=== PATIENT | female | born 1975 | race Caucasian/White ===

== ENCOUNTER → 2023-12-26 11:35 | Outpatient (REF) | payer MEDICARE, SELFPAY | LOC: HWRAD 11:35 | PROVIDERS: ATTENDING PHYSICIAN Family Medicine; FAMILY PHYSICIAN Physician Assistant Medical | DX: M54.16 Radiculopathy, lumbar region (principal) | CPT/HCPCS: 72110 ==

== ENCOUNTER → 2024-03-25 12:58 | Outpatient (REF) | payer MEDICARE, SELFPAY | LOC: MRI 3T 12:58 | PROVIDERS: ATTENDING PHYSICIAN Orthopaedic Surgery; FAMILY PHYSICIAN Physician Assistant Medical | DX: M54.50 Low back pain, unspecified (principal); M25.552 Pain in left hip | CPT/HCPCS: 72148; 73721 ==

== ENCOUNTER 2024-06-08 15:36 | Emergency (ER) | payer MEDICARE, SELFPAY ==
[2024-06-08 15:55] VITALS: BP 127/65; BMI 33.5
--- NOTE | 2024-06-08 17:22 | ED.GENMED ---
History of Present Illness
General
Chief Complaint: Crisis Evaluation
Source: patient
Time Seen by Provider: 06/08/24 17:15
History of Present Illness
History of Present Illness:
48-year-old female who presents to the emergency room via police after the patient's mother has petition for 302. Reason for the 302 is the patient is not caring for herself adequately. Patient denies these allegations. She denies any suicidal or
homicidal ideations. Patient denies having any prescribed medications. She denies any auditory or visual hallucinations. No recent illness.
Phy Exam
Physical Exam
Physical Exam:
General: Awake, Alert, Oriented X3. No acute distress.
Vitals: unremarkable
Head: Atraumatic
Eyes: Pupils equal, EOMI
Throat: Airway intact, no exudates
Neck: Trachea midline
Lungs: Clear and equal b/l
Heart: Regular rate, no murmurs
Abd: Soft, Nontender, No pulsatile mass
Neuro: Cranial nerves intact, muscle strength equal bilaterally, cerebellar exam normal
Skin: Warm, dry, no rash
Extremities: pulses equal b/l, no edema
Course
Orders/Labs/Results
Orders:
Orders
06/08/24 20:12
Nicotine [Nicoderm Transdermal] 21 mg TRANSDERM NOW STA
06/08/24 20:13
Test Result ONCE
06/08/24 20:53
Haloperidol Lactate [Haldol] 5 mg IM NOW STA
Lorazepam [Ativan] 2 mg IM NOW STA
06/08/24 21:15
Basic Metabolic Panel Urgent
Complete Blood Count/With Diff Urgent
HCG, Serum Qualitative Screen Urgent
06/08/24 21:49
Lorazepam [Ativan] 1 mg PO NOW STA
Abnormal Lab Results
06/08/24
21:15
WBC 10.9 H 10^3/uL
(4.8-10.8)
RBC 4.09 L 10^6/uL
(4.20-5.40)
Hct 36.8 L %
(37.0-47.0)
Absolute Neuts (auto) 7.3 H 10^3/uL
(1.4-6.5)
Absolute Monos (auto) 0.9 H 10^3/uL
(0.1-0.6)
Chloride 109 H mmol/L
(98-107)
06/08/24 21:15
06/08/24 21:15
Vital Signs
Initial and Last Documented VS:
Initial Vital Signs
Temp Pulse Resp BP Pulse Ox
98.5 F 88 16 127/65 94
06/08/24 15:55 06/08/24 15:55 06/08/24 15:55 06/08/24 15:55 06/08/24 15:55
Last Documented Vital Signs
Temp Pulse Resp BP Pulse Ox
97.9 F 85 17 143/69 100
06/09/24 09:38 06/09/24 09:38 06/09/24 09:38 06/09/24 09:38 06/09/24 09:38
MDM/Problems Addressed
Differential Diagnosis Includes:
psychosis, depression, anxiety
MDM/Problems Addressed:
302 upheld. Screening labs ordered. Pt became agitated, yelling at security and refusing to stay in her room. Haldol/ativan ordered.
*Pulse Oximetry
Patient hypoxic: no
*Critical Care Note
Total Time (30-74mins, 75-104mins- exclusive of procedures): Not Applicable
ED Attending Note
-
Portions of this chart may have been created with voice recognition software.� Occasional wrong word or��sound alike� substitutions may have occurred due to the inherent limitations of voice recognition software.
Discharge Plan
Departure
Patient Disposition: Psych Facility
Date of Disposition: 06/08/24
Time of Disposition: 20:13
Patient Status:: 302
Patient with high blood pressure during this ER visit?: No
Condition: Fair
Discharge Problem:
acute psychosis
Prescriptions:
No Action
No Current Medications
0
Referrals:
UNKNOWN - PT DOES,NOT KNOW [Family Provider] -
Interventions
Interventions:
*Risk Screen - Suicide Last Done: 06/08/24 15:55
*General Assessment Last Done: 06/08/24 15:55
*Neglect/Abuse Screening Last Done: 06/08/24 15:55
ED- Fall Risk Assessment Last Done: 06/08/24 15:55
*ED COVID-19 Vaccine History Last Done: 06/08/24 15:55
ED-Psychological Assessment Last Done: 06/09/24 09:00
Discharge Date and Time
Print Language: OMANI
[2024-06-08] MEDS: NICODERM TRANSDERMAL 21 MG TRANSDERM (21:05)
[2024-06-08 21:31] LABS: % Basophils 0.4 % (0-2); % Eosinophils 1.5 % (0-6); % Immature Granulocytes 0.4 % (0-0.5); % Lymphocytes 23.3 % (20.5-51.1); % Monocytes 7.9 % (1.7-9.3); % Neutrophils 66.5 % (42.2-75.2); Absolute Eosinophils 0.2 10^3/uL (0-0.7); Absolute Lymphocytes 2.6 10^3/uL (1.2-3.4); Absolute Monocytes 0.9 10^3/uL (0.1-0.6); Absolute Neutrophils 7.3 10^3/uL (1.4-6.5); Hematocrit 36.8 % (37.0-47.0); Hemoglobin 12.4 g/dL (12.0-16.0); Mean Corp Hgb Conc. 33.7 g/dL (33.0-37.0); Mean Corpuscular Hgb 30.3 pg (27.0-31.0); Mean Platelet Volume 9.9 fL (7.4-10.4); Nucleated Red Blood Cells % 0 %; Platelet Count 296 10^3/uL (130-400); Red Blood Cell Count 4.09 10^6/uL (4.20-5.40); Red Cell Dist. Width 12.6 % (11.5-14.5); White Blood Cell Count 10.9 10^3/uL (4.8-10.8)
[2024-06-08 21:40] LABS: HCG, Serum Qualitative Screen Negative
[2024-06-08 21:44] LABS: Blood Urea Nitrogen 12 mg/dl (7-17); Calcium 9.1 mg/dl (8.4-10.2); Carbon Dioxide 26 mmol/L (22-30); Chloride 109 mmol/L (98-107); Estimated Creatinine Clearance 108 ml/min; Glucose 96 mg/dl (70-99); Potassium 4.5 mmol/L (3.5-5.1); Sodium 139 mmol/L (135-145); eGFR > 60.00
[2024-06-08] MEDS: ATIVAN 1 MG PO (21:49)
[2024-06-09 09:00] VITALS: BP 136/81
--- NOTE | 2024-06-09 09:35 | ED.CRISIS ---
ED Crisis Note
ED Crisis Note
Subjective:
302
Assessment/Plan:
Patient held on a 302 for acute psychosis. Patient evaluated by me at 9:30 AM today. Patient is fully awake, calm and cooperative. She has no physical complaints. Patient being served breakfast. Is smiling and calm. Patient was able to sleep
for several hours last night and states she feels well rested.
[2024-06-09 09:38] VITALS: BP 143/69
--- NOTE | 2024-06-09 13:03 | EDRN ---
per crisis, the pt is to have a covid swab and urine drug screen for placement, this was communicated to Dr. Boykin
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
[2024-06-09 14:09] LABS: COVID-19 Antigen Negative (Negative)
[2024-06-09 17:22] LABS: Amphetamines Negative (Negative); Barbiturates Negative (Negative); Benzodiazepines Negative (Negative); Buprenorphine Negative (Negative); Cocaine Negative (Negative); Marijuana Negative (Negative); Methadone Negative (Negative); Methamphetamines Negative (Negative); Opiates Negative (Negative); Phencyclidine Negative (Negative); Tricyclic Antidepressants Negative (Negative)
[2024-06-09 21:53] VITALS: BP 121/81
== END 2024-06-10 02:30 ==
LOC: EMR 15:36
PROVIDERS: EMERGENCY PHYSICIAN Emergency Medicine; OTHER PHYSICIAN Psychiatry & Neurology Psychiatry
DX: F23 Brief psychotic disorder (principal); R45.1 Restlessness and agitation; Z11.52 Encounter for screening for COVID-19
CPT/HCPCS: 99285; 80048; 80306; 84703; 85025; 87811

== ENCOUNTER 2024-07-21 21:27 | Emergency (ER) | payer MEDICARE, SELFPAY ==
[2024-07-21 21:37] VITALS: BP 138/76
[2024-07-21 22:43] LABS: % Basophils 0.6 % (0-2); % Immature Granulocytes 0.5 % (0-0.5); % Monocytes 7.3 % (1.7-9.3); % Neutrophils 65.6 % (42.2-75.2); Absolute Basophils 0.1 10^3/uL (0-0.2); Absolute Eosinophils 0.2 10^3/uL (0-0.7); Absolute Immature Granulocytes 0.1 10^3/uL (0-0.05); Absolute Lymphocytes 2.6 10^3/uL (1.2-3.4); Absolute Monocytes 0.8 10^3/uL (0.1-0.6); Hematocrit 35.4 % (37.0-47.0); Hemoglobin 11.7 g/dL (12.0-16.0); Mean Corp Hgb Conc. 33.1 g/dL (33.0-37.0); Mean Corpuscular Hgb 29.4 pg (27.0-31.0); Mean Corpuscular Volume 88.9 fL (81.0-99.0); Mean Platelet Volume 9.5 fL (7.4-10.4); Nucleated Red Blood Cells % 0 %; Platelet Count 258 10^3/uL (130-400); Red Blood Cell Count 3.98 10^6/uL (4.20-5.40); Red Cell Dist. Width 13.5 % (11.5-14.5); White Blood Cell Count 10.7 10^3/uL (4.8-10.8)
[2024-07-21 22:50] VITALS: BMI 42.0
[2024-07-21 22:54] VITALS: BP 127/54
[2024-07-21 23:00] VITALS: BP 125/63
[2024-07-21 23:06] LABS: ALT (SGPT) 20 U/L (0-35); AST (SGOT) 20 U/L (14-36); Albumin 4.2 g/dl (3.5-5.0); Alkaline Phosphatase 63 U/L (38-126); Blood Urea Nitrogen 22 mg/dl (7-17); Calcium 9.5 mg/dl (8.4-10.2); Carbon Dioxide 25 mmol/L (22-30); Chloride 105 mmol/L (98-107); Estimated Creatinine Clearance 93 ml/min; Glucose 99 mg/dl (70-99); NT-proBNP 28.6 pg/ml; Potassium 4.6 mmol/L (3.5-5.1); Sodium 141 mmol/L (135-145); Total Bilirubin 0.2 mg/dl (0.2-1.3); Total Protein 6.4 g/dl (6.3-8.2); eGFR > 60.00
--- NOTE | 2024-07-21 23:12 | ED.GENMED ---
History of Present Illness
General
Chief Complaint: Cardiac Symptoms
Source: patient
Exam Limitations: none
Time Seen by Provider: 07/21/24 22:44
History of Present Illness
History of Present Illness:
This is a 49 year old female that comes in with multiple complaints. States that she just did not feel well. States that she has chest pain with some SOB. States that she feels like she is retaining fluid and that all this started at 9pm tonight.
States that the SOB is better and a headache that come and goes. Denies any fever, chills, abd pain, nausea, vomiting, diarrhea, headache at this time, dizziness, or urinary burning.
Past History
Past History
ED Past Medical History: Hyperthyroidism, Psychiatric (Anxiety, PTSD, Schizo-affective ) and Other (Anemia, )
ED Past Surgical History: Gynecological (Partial hysterectomy) and Orthopedic (Lumbar laminectomy)
Social History
Tobacco: Vaping
Alcohol: None
Personal: Other (Seperated)
Living: with family
Review of Systems
Review of Systems
All Other Systems: ROS reviewed and negative except as documented in HPI and ROS
Constitutional: Reports no symptoms; Denies fever or chills
EENT: Reports no symptoms
Respiratory: Reports trouble breathing; Denies cough
Cardiac: Reports chest pain
ABD/GI: Reports no symptoms; Denies abdominal pain, nausea, vomiting or diarrhea
: Reports no symptoms; Denies dysuria, frequency or urgency
Musculoskeletal: Reports other (Feels like she is retaining water)
Skin: Reports no symptoms
Neurological: Reports headache (comes and goes); Denies dizzy
Psychiatric: Reports no symptoms
Phy Exam
General Physical Exam
General Presentation: well appearing and no apparent distress
General age: appears stated age
General Skin: warm and dry
General Habitus: obese
General Mental: alert
General Hydration: appears well hydrated
ENT Exam
ENT Exam: TM's normal, pharynx normal and neck supple
Eye Exam
Eye Exam: EOMI
Cardiovascular Exam
Cardiovascular Exam: regular rate/rhythm, no edema, no murmur and normal peripheral pulses
Pulmonary Exam
Pulmonary Exam: lungs clear, no respiratory distress, no rales, chest non tender, no crackles, no rhonchi, no wheezing and no cough
Gastrointestinal Exam
Gastrointestinal Exam: normal bowel sounds, non tender, soft, no organomegaly, no pulsatile mass and non distended
Musculoskeletal Exam
Musculoskeletal Exam: full ROM and no edema
Skin Exam
Skin Exam: normal color, warm/dry, no rash and no petechia
Psychiatric Exam
Psychiatric Exam: normal mood/affect
Course
Orders/Labs/Results
Orders:
Orders
07/21/24 21:28
EKG [Electrocardiogram (*1)] Urgent
Reason for Study: Chest Pain
EKG- Treatment ONCE
07/21/24 22:36
BNP [NT-proBNP] Urgent
Complete Blood Count/With Diff Urgent
Comprehensive Metabolic Panel Urgent
Free T4 Urgent
TSH Reflex To Free T4 Urgent
Comment: ADD ON
Troponin I Urgent
07/21/24 23:12
CR Chest - 2 Views Urgent
Comment:
Reason For Exam: chest pain
07/21/24 23:14
Add On- LAB Urgent
Tests Added?: TSH with free T4
07/22/24 00:21
Trazodone [Desyrel] 100 mg PO NOW STA
Abnormal Lab Results
07/21/24
22:36
RBC 3.98 L 10^6/uL
(4.20-5.40)
Hgb 11.7 L g/dL
(12.0-16.0)
Hct 35.4 L %
(37.0-47.0)
Abs Immat Gran (auto) 0.1 H 10^3/uL
(0-0.05)
Absolute Neuts (auto) 7.0 H 10^3/uL
(1.4-6.5)
Absolute Monos (auto) 0.8 H 10^3/uL
(0.1-0.6)
BUN 22 H mg/dl
(7-17)
TSH (Reflex) 4.97 H uIU/ml
(0.47-4.68)
07/21/24 22:36
07/21/24 22:36
H/H slightly low. Dehydration. Pro-BNP 28.6, Troponin <0.012, TSH very slightly elevated at 4.97
Vital Signs
Initial and Last Documented VS:
Initial Vital Signs
Temp Pulse Resp BP Pulse Ox
97.8 F 96 24 138/76 98
07/21/24 21:37 07/21/24 21:37 07/21/24 21:37 07/21/24 21:37 07/21/24 21:37
Last Documented Vital Signs
Temp Pulse Resp BP Pulse Ox
97.8 F 82 11 125/60 95
07/21/24 21:37 07/21/24 23:00 07/21/24 23:00 07/22/24 00:00 07/22/24 00:01
MDM/Problems Addressed
Differential Diagnosis Includes:
Coronary syndrome. Anxiety.
MDM/Problems Addressed:
This is a 49 year old female that comes in with c/o chest pain, SOB that is now better and a headache that comes and goes. States that this started at 9pm tonight
Will check labs. Chest- X-ray.
Back into see patient. Explained that her blood work is normal along with her chest X-ray. Patient to follow up with the family doctor. Patient also has told nursing that she ran out of her Trazodone 100mg that she takes. Will give patient a
prescription for 4 tables until she can see her family doctor. Patient to return with any concerns.
Chronic conditions affecting care: Psychiatric illness
Acute Exacerbation and/or Progression of Chronic Illness: Psychiatric illness
*Radiology
Radiology exam reviewed: preliminary read by ED provider (Chest- Negative for active disease)
*Pulse Oximetry
Patient hypoxic: no
*EKG
Interpreted by ED Provider?: Yes
Heart Rate: 97
Rate: normal
Rhythm: sinus
Carmine: normal axis
Interval: normal interval
QRS Pattern: normal QRS
Ischemia: no ischemia
*Event Marketing Specialist Interpretation
Rate: normal
Heart Rate: 90
Rhythm: sinus
*Critical Care Note
Total Time (30-74mins, 75-104mins- exclusive of procedures): Not Applicable
ED Attending Note
-
Portions of this chart may have been created with voice recognition software.� Occasional wrong word or��sound alike� substitutions may have occurred due to the inherent limitations of voice recognition software.
Discharge Plan
Departure
Patient Disposition: Home (Routine Discharge)
Date of Disposition: 07/22/24
Time of Disposition: 00:13
Patient with high blood pressure during this ER visit?: No
Condition: Good
Covid-19: Not Applicable
Discharge Problem:
Chest pain
Instructions: Chest Pain PCP Follow Up
Prescriptions:
New
trazodone 100 mg tablet
100 mg PO DAILY Qty: 4 0RF
No Action
risperidone 2 mg Tablet
2 mg PO HS
trazodone 100 mg Tablet
100 mg PO DAILY
Referrals:
Latonia Casillsa PA-C [Family Provider] - Follow up in 2-3 days
Activity Restrictions/Additional Instructions:
As discussed, your blood work shows some Dehydration. Your Chest x-ray is normal along with your Pr0-BNP which is a marker for fluid over load. Please follow up with the family doctor for further evaluation. You have had a prescription for Trazodone
sent to your pharmacy. This is only for 4 tablets until you can see your primary care doctor. IF YOU HAVE ANY OTHER CONCERNS PLEASE RETURN TO THE EMERGENCY ROOM.
Interventions
Interventions:
*Risk Screen - Suicide Last Done: 07/21/24 21:37
*General Assessment Last Done: 07/21/24 22:51
*Neglect/Abuse Screening Last Done: 07/21/24 21:37
ED- Fall Risk Assessment Last Done: 07/21/24 22:55
*ED COVID-19 Vaccine History Last Done: 07/21/24 22:51
ED- Cardiac Assessment Last Done: 07/21/24 22:55
ED- Pulmonary Assessment Last Done: 07/21/24 22:55
Discharge Date and Time
Print Language: [place]ER[place] LEONE[place]
[2024-07-21 23:57] LABS: Troponin I < 0.012 ng/ml
[2024-07-22] VITALS: BP 125/60
[2024-07-22 00:05] LABS: TSH Reflex To Free T4 4.97 uIU/ml (0.47-4.68)
[2024-07-22] MEDS: DESYREL 100 MG PO (00:32)
[2024-07-22 00:33] LABS: Free T4 0.94 ng/dl (0.78-2.19)
== END 2024-07-22 00:37 | disposition home or self-care (01) ==
LOC: EMR 21:27
PROVIDERS: EMERGENCY PHYSICIAN Student in an Organized Health Care Education/Training Program; FAMILY PHYSICIAN Physician Assistant Medical
DX: R07.89 Other chest pain (principal); R06.02 Shortness of breath; E05.90 Thyrotoxicosis, unspecified without thyrotoxic crisis or storm; F41.9 Anxiety disorder, unspecified; F43.10 Post-traumatic stress disorder, unspecified; F25.9 Schizoaffective disorder, unspecified; D64.9 Anemia, unspecified; E86.0 Dehydration; F17.290 Nicotine dependence, other tobacco product, uncomplicated
CPT/HCPCS: 99283; 71046; 80053; 83880; 84439; 84443; 84484; 85025; 93005

== ENCOUNTER 2024-08-09 20:16 | Emergency (ER) | payer MEDICARE, SELFPAY ==
[2024-08-09 20:31] VITALS: BP 132/69
[2024-08-09 20:43] LABS: % Basophils 0.4 % (0-2); % Eosinophils 2.2 % (0-6); % Immature Granulocytes 0.4 % (0-0.5); % Lymphocytes 21.7 % (20.5-51.1); % Monocytes 6.6 % (1.7-9.3); % Neutrophils 68.7 % (42.2-75.2); Absolute Eosinophils 0.2 10^3/uL (0-0.7); Absolute Monocytes 0.6 10^3/uL (0.1-0.6); Absolute Neutrophils 6.3 10^3/uL (1.4-6.5); Hematocrit 36.3 % (37.0-47.0); Hemoglobin 11.8 g/dL (12.0-16.0); Mean Corp Hgb Conc. 32.5 g/dL (33.0-37.0); Mean Corpuscular Hgb 28.7 pg (27.0-31.0); Mean Corpuscular Volume 88.3 fL (81.0-99.0); Mean Platelet Volume 9.5 fL (7.4-10.4); Nucleated Red Blood Cells % 0 %; Platelet Count 262 10^3/uL (130-400); Red Blood Cell Count 4.11 10^6/uL (4.20-5.40); White Blood Cell Count 9.1 10^3/uL (4.8-10.8)
[2024-08-09 21:01] LABS: HCG, Serum Qualitative Screen Negative
[2024-08-09 21:05] LABS: ALT (SGPT) 26 U/L (0-35); AST (SGOT) 22 U/L (14-36); Albumin 4.2 g/dl (3.5-5.0); Alkaline Phosphatase 53 U/L (38-126); Blood Urea Nitrogen 15 mg/dl (7-17); Calcium 9.5 mg/dl (8.4-10.2); Carbon Dioxide 27 mmol/L (22-30); Chloride 105 mmol/L (98-107); Glucose 138 mg/dl (70-99); Potassium 4.5 mmol/L (3.5-5.1); Sodium 143 mmol/L (135-145); Total Bilirubin 0.2 mg/dl (0.2-1.3); Total Protein 6.7 g/dl (6.3-8.2); eGFR > 60.00
[2024-08-09 21:10] LABS: NT-proBNP 34.4 pg/ml; Troponin I < 0.012 ng/ml
== END 2024-08-09 21:21 | disposition left against medical advice (07) ==
LOC: EMR 20:16
PROVIDERS: Emergency Medicine
DX: R06.02 Shortness of breath (principal); R60.0 Localized edema; R06.2 Wheezing; Z53.21 Procedure and treatment not carried out due to patient leaving prior to being seen by health care provider
CPT/HCPCS: 80053; 83880; 84484; 84703; 85025; 93005

== ENCOUNTER 2024-09-25 15:55 | Emergency (ER) | payer MEDICARE, SELFPAY ==
[2024-09-25 16:10] VITALS: BMI 42.2
[2024-09-25 16:13] VITALS: BP 161/88
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
[2024-09-25 17:31] LABS: % Basophils 0.3 % (0-2); % Immature Granulocytes 0.5 % (0-0.5); % Lymphocytes 12.3 % (20.5-51.1); % Monocytes 5.7 % (1.7-9.3); % Neutrophils 80.2 % (42.2-75.2); Absolute Basophils 0.1 10^3/uL (0-0.2); Absolute Eosinophils 0.2 10^3/uL (0-0.7); Absolute Immature Granulocytes 0.1 10^3/uL (0-0.05); Absolute Lymphocytes 1.8 10^3/uL (1.2-3.4); Absolute Monocytes 0.8 10^3/uL (0.1-0.6); Absolute Neutrophils 11.6 10^3/uL (1.4-6.5); Hematocrit 37.2 % (37.0-47.0); Hemoglobin 12.4 g/dL (12.0-16.0); Mean Corp Hgb Conc. 33.3 g/dL (33.0-37.0); Mean Corpuscular Hgb 29.8 pg (27.0-31.0); Mean Corpuscular Volume 89.4 fL (81.0-99.0); Mean Platelet Volume 10.2 fL (7.4-10.4); Nucleated Red Blood Cells % 0 %; Platelet Count 269 10^3/uL (130-400); Red Blood Cell Count 4.16 10^6/uL (4.20-5.40); Red Cell Dist. Width 14.4 % (11.5-14.5); White Blood Cell Count 14.5 10^3/uL (4.8-10.8)
[2024-09-25 17:45] LABS: HCG, Serum Qualitative Screen Negative
[2024-09-25 17:49] LABS: ALT (SGPT) 24 U/L (0-35); AST (SGOT) 23 U/L (14-36); Albumin 4.4 g/dl (3.5-5.0); Alcohol None Detected; Alkaline Phosphatase 53 U/L (38-126); Blood Urea Nitrogen 11 mg/dl (7-17); Calcium 9.5 mg/dl (8.4-10.2); Carbon Dioxide 26 mmol/L (22-30); Chloride 106 mmol/L (98-107); Estimated Creatinine Clearance 105 ml/min; Glucose 85 mg/dl (70-99); Potassium 4.2 mmol/L (3.5-5.1); Sodium 139 mmol/L (135-145); Total Bilirubin 0.4 mg/dl (0.2-1.3); Total Protein 6.7 g/dl (6.3-8.2); eGFR > 60.00
== END 2024-09-25 20:42 ==
LOC: EMR 15:55
PROVIDERS: EMERGENCY PHYSICIAN Student in an Organized Health Care Education/Training Program
DX: F25.0 Schizoaffective disorder, bipolar type (principal); F20.9 Schizophrenia, unspecified; R44.0 Auditory hallucinations; F22 Delusional disorders; F29 Unspecified psychosis not due to a substance or known physiological condition; F31.9 Bipolar disorder, unspecified; F43.10 Post-traumatic stress disorder, unspecified; F41.9 Anxiety disorder, unspecified; F17.210 Nicotine dependence, cigarettes, uncomplicated; Z91.128 Patient's intentional underdosing of medication regimen for other reason; Z88.8 Allergy status to other drugs, medicaments and biological substances
CPT/HCPCS: 99285; 80053; 82077; 84703; 85025